=== PATIENT | male | born 1940 | race Caucasian/White ===

== ENCOUNTER 2016-11-12 15:00 | Emergency (ER) | payer OTHER ==
[~2016-11-12] VITALS: Ht 177.8 cm; Wt 106.0 kg
[~2016-11-12 15:00] MED LIST: ACT15; ASPEC81; FLX10; GLC5500; INDO-22; LISI-461 PO; VYT1010
[2016-11-12 15:10] VITALS: TEMP 36.8; Ht 177.8 cm; Wt 106.0 kg
--- NOTE | 2016-11-12 15:25 | EMERGENCY ROOM VISIT NOTE ---
History Report prepared by Hitesh: Fabian Carroll Under the Supervision of: Dr. Myles Hall M.D. First contact with patient: 15:17 Chief Complaint: LEG PAIN,LEG INJURY Stated Complaint: LEG PAIN - RIGHT History of Present Illness The patient is a 76 year old male who presents to the Emergency Room with complaints of worsening right leg pain that began a few days ago. He rates his pain a 9/10 in severity. The patient states that he has had "lumps" on his right inner thigh for many years. He states that over these couple of days, they began to hurt, and more lumps have appeared. He denies any pain in his calves or foot. He denies any numbness or weakness. He denies chest pain or shortness of breath. He has a history of diabetes. He states that his blood sugar has been giving him trouble secondary to illnesses. Source of History: patient Onset: a few days ago Position: leg (right) Symptom Intensity: 9/10 Quality: ache Timing: worsening Modifying Factors (Worsening): movement Associated Symptoms: No SOB, No chest pain, No numbness, No weakness Review of Systems See HPI for pertinent positives & negatives. A total of 10 systems reviewed and were otherwise negative. Past Medical & Surgical Medical Problems: (1) Diabetes Old medical records were reviewed. Nurse's notes were reviewed and I agree with. Family History Omitted secondary to age. Social History Smoking Status: Former Smoker Smokeless Tobacco Use: No Drug Use: none Marital Status: Housing Status: lives with significant other Occupation Status: retired Current/Historical Medications Scheduled Cyclobenzaprine Hcl (Flexeril), 10 MG PO TID Ezetimibe/Simvastatin (Vytorin 03/27), 1 TAB PO QPM Glipizide (Glucotrol), 10 MG PO BID Lisinopril (Zestril), 10 MG PO QAM Metformin Hcl (Glucophage), 1,000 MG PO BID Pioglitazone (Actos), 15 MG PO DAILY Allergies Coded Allergies: No Known Allergies (Unverified , 06/12/06) Physical Exam Vital Signs Date Time Temp Pulse Resp B/P Pulse Ox O2 Delivery O2 Flow Rate FiO2 11/12/16 15:10 36.8 92 20 151/82 95 Room Air Physical Exam General: Non ill appearing older male. Well developed well nourished in no acute distress, breathing comfortably on room air. Normal speech HEENT: Normal cephalic atraumatic. Pupils are equal round and reactive to light. Extraocular movements are intact. Oropharynx is pink with moist mucous membranes. No swelling of the mouth lips or tongue. Neck: Supple with a midline trachea. No meningeal signs or stiffness, no JVD or bruits. No Stridor. Chest: Clear to auscultation bilaterally. No wheezes or rhonchi. No increased work of breathing. Heart: regular rate and rhythm. Abdomen: Soft nontender, nondistended without rebound guarding or rigidity. Extremities: No cyanosis clubbing or edema. No calf tenderness or assymetry. Mild tenderness in the medial thigh with palpable nodules. No redness or warmth. Spine/Back. Non tender to palpation. No CVA tenderness Skin: Good turgor without rashes. Neurologic exam: Cranial nerves two through 12 are intact. Motor and sensation are intact and symmetrical throughout. Medical Decision & Procedures ER Provider Diagnostic Interpretation: Radiology results as stated below per my review and radiologist interpretation: RIGHT LOWER EXTREMITY VENOUS DOPPLER HISTORY: Leg swelling/pain Right COMPARISON STUDY: None. FINDINGS: There is normal compressibility, flow, and augmentation within the right lower extremity deep venous system. Thrombus identified within the right greater saphenous vein from the thigh through the calf. IMPRESSION: No DVT within the right lower extremity. Thrombosed right greater saphenous vein. Electronically signed by: Eric Acosta M.D. 11/12/2016 5:51 PM Dictated Date/Time: 11/12/2016 5:50 PM Laboratory Results 11/12/16 15:45 Red Blood Count 4.44, Mean Corpuscular Volume 91.0, Mean Corpuscular Hemoglobin 30.6, Mean Corpuscular Hemoglobin Concent 33.7, Mean Platelet Volume 9.6 11/12/16 15:45 Test 11/12/16 15:45 White Blood Count 7.12 K/uL (4.8-10.8) Red Blood Count 4.44 M/uL (4.7-6.1) Hemoglobin 13.6 g/dL (14.0-18.0) Hematocrit 40.4 % (42-52) Mean Corpuscular Volume 91.0 fL (80-100) Mean Corpuscular Hemoglobin 30.6 pg (25-34) Mean Corpuscular Hemoglobin Concent 33.7 g/dl (32-36) Platelet Count 183 K/uL (130-400) Mean Platelet Volume 9.6 fL (7.4-10.4) RDW Standard Deviation 44.1 fL (36.4-46.3) RDW Coefficient of Variation 13.3 % (11.5-14.5) Neutrophils % (Manual) 44.2 % Lymphocytes % (Manual) 12.4 % Variant Lymphocytes % (manual) 29.2 % Monocytes % (Manual) 8.0 % Eosinophils % (Manual) 4.4 % Basophils % (Manual) 0.9 % (0-2) Metamyelocytes % 0.9 % Neutrophils # (Manual) 3.15 K/uL (1.4-6.5) Total Absolute Neutrophils 3.15 K/uL (1.4-6.5) Lymphocytes # (Manual) 0.88 K/uL (1.2-3.4) Absolute Variant Lymphocytes 2.08 K/uL Total Absolute Lymphocytes 2.96 K/uL (1.2-3.4) Monocytes # (Manual) 0.57 K/uL (0.11-0.59) Eosinophils # (Manual) 0.31 K/uL (0-0.5) Basophils # (Manual) 0.06 K/uL (0-0.2) Metamyelocytes # 0.06 K/uL (0-0) Smudge Cells PRESENT Prothrombin Time 9.5 SECONDS (9.0-12.0) Prothromb Time International Ratio 0.9 (0.9-1.1) Activated Partial Thromboplast Time 20.7 SECONDS (21.0-31.0) Partial Thromboplastin Ratio 0.8 Anion Gap 8.0 mmol/L (3-11) Est Creatinine Clear Calc Drug Dose 71.8 ml/min Estimated GFR () 76.2 Estimated GFR (Non- 65.8 BUN/Creatinine Ratio 15.3 (10-20) Calcium Level 8.0 mg/dl (8.5-10.1) Beta-Hydroxybutyric Acid 1.03 mg/dL (0.2-2.81) Laboratory studies as stated above per my review. ED Course 1517: Past medical records reviewed. The patient was evaluated in room B2, and a complete history and physical examination were performed. 1652: The patient is resting comfortably waiting for an US. 1809: I spoke with Dr[facility], at this time. Please see the consultation note for further information. 1820: Upon reevaluation, the patient is resting. I discussed the results and treatment plan with him. He verbalized agreement of the treatment plan. The patient was discharged home. Medical Decision Differentials include DVT, varicose veins, diabetic emergency, and injection. Medication Reconciliation: I attest that I have personally reviewed the patient' s current medication list. He is currently not on any blood thinners Blood pressure Screening: Patient was found to have normal blood pressure on screening and does not require follow-up. This patient comes in as described above. He was placed in room B2. He is here for treatment and evaluation of right leg pain in his right side. He has some nodules in the right medial thigh. They're not red or warm. He is mildly tender. Distally, the leg is pink and well-perfused appear with normal pulses. No calf tenderness or asymmetry or anything to suggest DVT or arterial compromise. Ultrasound was ordered as well as blood work. He was reassessed frequently. He is on no blood thinners. The ultrasound shows no DVT however there is extensive saphenous vein clot. Given the large clot burn I do think he needs anticoagulation. Discussed with Dr. [facility]ly [facility] who agrees. I did start the patient on Xarelto 15 mg by mouth and a prescription 15 mg by mouth twice a day for 7 days. I discussed with the pharmacist who agrees as well. I talked to patient about this. He has no trouble ambulating the does not appear to be a fall risk. I told him of the extreme importance him following up this week for recheck he may need a full course of this for several months hit his doctor may prefer him on a different drug long-term as well and they need to decide that. Certainly this is not the and of the story and he should follow-up with his doctor and return if: increasing pain, problems with bleeding, any new problems or concerns Consults Time Called: 180 Consulting Physician: Dr. Kimberly White Returned Call: [phone] They recommended starting Xarelto. Impression Primary Impression: Superficial thrombophlebitis Additional Impression: Right leg pain Scribe Attestation The scribe's documentation has been prepared under my direction and personally reviewed by me in its entirety. I confirm that the note above accurately reflects all work, treatment, procedures, and medical decision making performed by me. Departure Information Dispostion Home / Self-Care Referrals Alena Hernandez (PCP) Forms HOME CARE DOCUMENTATION FORM, IMPORTANT VISIT INFORMATION Patient Instructions My [facility] Additional Instructions Rest. Drink plenty of fluids. Use a warm compress May use an anti-inflammatory such as ibuprofen 400 mg every 6 hours Return if: Increasing pain or swelling, redness or warmth, fever or chills, chest pain, shortness breath, any new problems or concerns. Your blood pressure is mildly elevated. Make sure you follow-up with your doctor for recheck of this as well and possible further treatment Follow-up with your doctor this week for recheck of your leg as well. Problem Qualifiers
[2016-11-12] MEDS ORDERED: VYT/1010 PO (15:41)
[2016-11-12] MEDS ORDERED: ACT15 PO (15:41)
[2016-11-12] MEDS ORDERED: METF-384 PO (15:41)
[2016-11-12] MEDS ORDERED: CYCL10TA6 PO (15:41)
[2016-11-12] MEDS ORDERED: GLIP10TA9 PO (15:41)
[2016-11-12 15:57] LABS: HEMATOCRIT 40.4 % (42-52); MEAN CORPUSCULAR HEMOGLOBIN 30.6 pg (25-34); MEAN CORPUSCULAR HGB CONC 33.7 g/dl (32-36); MEAN PLATELET VOLUME 9.6 fL (7.4-10.4); PLATELET COUNT 183 K/uL (130-400); RED BLOOD COUNT 4.44 M/uL (4.7-6.1); WHITE BLOOD COUNT 7.12 K/uL (4.8-10.8)
[2016-11-12 16:05] LABS: INR 0.9 (0.9-1.1); PARTIAL THROMBOPLASTIN RATIO 0.8; PROTHROMBIN TIME (PATIENT) 9.5 SECONDS (9.0-12.0)
[2016-11-12 16:13] LABS: BUN/CREATININE RATIO 15.3 (10-20); CREATININE 1.1 mg/dl (0.60-1.40); POTASSIUM 4.5 mmol/L (3.5-5.1)
[2016-11-12 16:23] LABS: BETA-HYDROXYBUTYRATE 1.03 mg/dL (0.2-2.81)
[2016-11-12 16:51] LABS: BASO ABS # 0.06 K/uL (0-0.2); BASOPHIL % 0.9 % (0-2); COMPLETE YES; EOSINOPHIL % 4.4 %; LYMPH ABS # 0.88 K/uL (1.2-3.4); LYMPHOCYTE % 12.4 %; META ABS # 0.06 K/uL (0-0); METAMYELOCYTE % 0.9 %; NEUTROPHILS % 44.2 %; SMUDGE CELLS PRESENT; VARIANT LYM ABS # 2.08 K/uL; VARIANT LYMPHOCYTE % 29.2 %
--- NOTE | 2016-11-12 17:52 | DIAGNOSTIC IMAGING REPORT ---
RIGHT LOWER EXTREMITY VENOUS DOPPLER HISTORY: Leg swelling/pain Right COMPARISON STUDY: None. FINDINGS: There is normal compressibility, flow, and augmentation within the right lower extremity deep venous system. Thrombus identified within the right greater saphenous vein from the thigh through the calf. IMPRESSION: No DVT within the right lower extremity. Thrombosed right greater saphenous vein. Electronically signed by: Eric Acosta M.D. 11/12/2016 5:51 PM Dictated Date/Time: 11/12/2016 5:50 PM
[2016-11-12] MEDS ORDERED: RIVAROXABAN TAB 15 MG TAB PO STA (18:22)
[2016-11-12 18:46] VITALS: BP 145/78; PULSE 75; O2SAT 94
== END 2016-11-12 18:49 | disposition home or self-care (01) ==
LOC: C.EDB 15:01
DX: I80.01 Phlebitis and thrombophlebitis of superficial vessels of right lower extremity (principal); E11.9 Type 2 diabetes mellitus without complications; Z79.84 Long term (current) use of oral hypoglycemic drugs

== ENCOUNTER 2018-01-25 08:10 | Emergency (ER) | payer OTHER ==
[~2018-01-25] VITALS: Ht 177.8 cm; Wt 101.0 kg
[~2018-01-25 08:10] MED LIST changes: -ACT15; +ACT15 PO; -ASPEC81; +CYCL10TA6 PO; -FLX10; -GLC5500; +GLIP10TA9 PO; -INDO-22; +METF-384 PO; +VYT/1010 PO; -VYT1010
[2018-01-25 08:17] VITALS: TEMP 36.7; Ht 177.8 cm; Wt 101.0 kg
[2018-01-25 09:18] LABS: BASO % 0.3 %; BASO ABS # 0.03 K/uL (0-0.2); EOS % 1.4 %; EOS ABS # 0.12 K/uL (0-0.5); HEMATOCRIT 46.4 % (42-52); HEMOGLOBIN 15.8 g/dL (14.0-18.0); IG# 0.03 K/uL (0.00-0.02); LYMPH % 30.2 %; LYMPH ABS # 2.62 K/uL (1.2-3.4); MEAN CELL VOLUME 91.7 fL (80-100); MEAN CORPUSCULAR HEMOGLOBIN 31.2 pg (25-34); MEAN CORPUSCULAR HGB CONC 34.1 g/dl (32-36); MEAN PLATELET VOLUME 10.3 fL (7.4-10.4); MONO % 6.9 %; NEUT % 60.9 %; NEUT ABS # 5.27 K/uL (1.4-6.5); PLATELET COUNT 190 K/uL (130-400); RED CELL DISTRIBUTION WIDTH CV 13.4 % (11.5-14.5); RED CELL DISTRIBUTION WIDTH SD 44.7 fL (36.4-46.3); WHITE BLOOD COUNT 8.67 K/uL (4.8-10.8)
--- NOTE | 2018-01-25 09:21 | DIAGNOSTIC IMAGING REPORT ---
RIGHT THUMB 3 VIEWS HISTORY: R thumb pain and swelling; hx infection COMPARISON: None. FINDINGS: There is no fracture or dislocation. Soft tissue swelling within the right thumb. Mild osteoarthritis. Chondrocalcinosis within the wrist. No erosive changes within the thumb. No radiopaque foreign bodies. IMPRESSION: 1. Soft tissue swelling within the right thumb. 2. Mild osteoarthritis. 3. Chondrocalcinosis within the wrist. Electronically signed by: Eric Acosta M.D. 01/25/2018 9:19 AM Dictated Date/Time: 01/25/2018 9:18 AM
[2018-01-25 09:31] LABS: CREATININE 1.24 mg/dl (0.60-1.40); POTASSIUM 4.8 mmol/L (3.5-5.1)
--- NOTE | 2018-01-25 10:49 | EMERGENCY ROOM VISIT NOTE ---
ED Visit Note First contact with patient: 08:20 The patient was seen and examined with Frank Delaney PA-C. I agree with the history, physical and findings. Please see the note for disposition and details.
[2018-01-25 10:57] VITALS: BP 123/77; PULSE 76; O2SAT 96
--- NOTE | 2018-01-25 19:00 | EMERGENCY ROOM VISIT NOTE ---
ED Visit Note First contact with patient: 08:20 Chief Complaint: Right thumb pain. History of Present Illness: Mr. Bledsoe is a 77-year-old white male who the complaining of right thumb pain. Patient reports approximately a year ago he had a skin lesion in the left preauricular area and it was diagnosed as a MRSA infection. Patient reports approximately 1 month ago he was seen at the [facility] ED for right thumb pain and swelling. He reports he was diagnosed with a paronychia and an I&D was performed. He was discharged to home on Bactrim and had almost near resolution of his pain and swelling. Then 2 weeks ago he noted increasing redness and swelling. Once again he was seen at the [facility] ED and was once again placed on Bactrim. Once again he reported mild resolution of some of his symptoms but then over the last 2 days he has noted increasing redness and swelling in the thumb as well as pain. Currently he complains of a severe throbbing pain over the superior aspect of the thumb pad. He rates his discomfort 9/10. His pain worsens with palpation. He has not identified any alleviating factors related to the pain. He reports palpation increases his discomfort. He has not identified any alleviating factors related to his pain he reports he has been using ibuprofen without relief of his discomfort. Additionally he notes he does have a dry patch of skin in the area of his pain. He does report that he has been squeezing this area and sticking pins and a utility knife in this area. He reports this causes a severe amount of pain but he does not have any drainage from the wound but blood. He denies fevers, chills, sweats, other skin eruptions, other skin color changes , recent trauma to the thumb, thumb weakness/numbness/tingling, wrist pain, other hand/finger pain, decreased appetite, nausea/vomiting, chest pain, shortness of breath. Review of Systems: As noted above in history of present illness. 8 body systems were reviewed and found to be negative as noted above. Past Medical History: Diabetes, fibromyalgia, dyslipidemia, hypertension, peripheral vascular disease status post lumbar hemilaminectomy. Current Medications: Zestril, Flexeril, Actos, Glucotrol, Glucophage and Vytorin. Allergies to Medications: Sitagliptin. Social History: Patient is not employed; he feels safe in his home environment; he denies tobacco and alcohol use. Physical Examination: Vital Signs: Date Time Temp Pulse Resp B/P (MAP) Pulse Ox O2 Delivery O2 Flow Rate FiO2 01/25/18 10:57 76 18 123/77 96 Room Air 01/25/18 08:17 36.7 76 18 124/76 97 Room Air GENERAL: 77-year-old male in mild distress due to pain, nontoxic-appearing, afebrile and hemodynamically stable. NEUROLOGICAL: Awake, alert and oriented to person, place and time. Answering questions appropriately and following commands. Normal gait. Good hand eye coordination. No focal motor or sensory deficits. SKIN: Warm, dry and pink. Right Thumb: No fresh soft tissue trauma was noted over the border of the thumb pad and nail patient has an area of dry skin with surrounding erythema around the nail. The skin does not appear cellulitic. There are no palpable lesions or abscesses. There is no lymphangitis. HEENT: Atraumatic and normocephalic. THORAX: Lungs sounds are clear to auscultation and equal bilaterally with symmetrical chest wall. No crepitus, tenderness, subcutaneous air or deformities noted. HEART: Regular rate and rhythm. No gallops, rubs or murmurs are appreciated. ABDOMEN: Soft and nontender. Positive bowel sounds in all quadrants. No guarding, rigidity or organomegaly. RIGHT UPPER EXTREMITY: No gross bony deformity. No tenderness in the shoulder, upper arm, forearm, elbow or wrist. Mild tenderness over the soft tissue injury described of the thumb. There is no local open soft tissue trauma. The skin did not appear cellulitic as previously noted. There is no blood or fluid under the nail bed. Patient has full range of motion of the MCP, PIP and the interphalangeal joint against resistance. The thumb was warm and pink and capillary refill is brisk. He was able to distinguish light sensations to all dermatomes of the thumb. ED Course: Patient is assessed as noted above. Patient's medication list was reviewed. Laboratory Testing: Test 01/25/18 08:52 Range/Units White Blood Count 8.67 4.8-10.8 K/uL Red Blood Count 5.06 4.7-6.1 M/uL Hemoglobin 15.8 14.0-18.0 g/dL Hematocrit 46.4 42-52 % Mean Corpuscular Volume 91.7 80-100 fL Mean Corpuscular Hemoglobin 31.2 25-34 pg Mean Corpuscular Hemoglobin Concent 34.1 32-36 g/dl Platelet Count 190 130-400 K/uL Mean Platelet Volume 10.3 7.4-10.4 fL Neutrophils (%) (Auto) 60.9 % Lymphocytes (%) (Auto) 30.2 % Monocytes (%) (Auto) 6.9 % Eosinophils (%) (Auto) 1.4 % Basophils (%) (Auto) 0.3 % Neutrophils # (Auto) 5.27 1.4-6.5 K/uL Lymphocytes # (Auto) 2.62 1.2-3.4 K/uL Monocytes # (Auto) 0.60 0.11-0.59 K/uL Eosinophils # (Auto) 0.12 0-0.5 K/uL Basophils # (Auto) 0.03 0-0.2 K/uL RDW Standard Deviation 44.7 36.4-46.3 fL RDW Coefficient of Variation 13.4 11.5-14.5 % Immature Granulocyte % (Auto) 0.3 % Immature Granulocyte # (Auto) 0.03 0.00-0.02 K/uL Sodium Level 134 136-145 mmol/L Potassium Level 4.8 3.5-5.1 mmol/L Chloride Level 104 98-107 mmol/L Carbon Dioxide Level 21 21-32 mmol/L Anion Gap 10.0 3-11 mmol/L Blood Urea Nitrogen 29 7-18 mg/dl Creatinine 1.24 0.60-1.40 mg/dl Est Creatinine Clear Calc Drug Dose 61.3 ml/min Estimated GFR () 65.5 Estimated GFR (Non- 56.5 BUN/Creatinine Ratio 23.7 10-20 Random Glucose 335 70-99 mg/dl Calcium Level 9.0 8.5-10.1 mg/dl Beta-Hydroxybutyric Acid 0.2-2.81 mg/dL Blood Cultures: Pending. Right Thumb X-Rays: Were read by myself and the radiologist and shows no acute fractures or dislocations. Soft tissue swelling. Mild osteoarthritis no radiopaque foreign bodies or erosive changes. Patient was offered pain medication and refused. Patient's case was reviewed with Dr. Pepper; he independently assessed the patient we agreed on diagnostic approach, treatment, disposition and plan. Patient was educated about today's findings and instructed on his treatment plan ; he verbalized understanding and agreement with this plan. Patient was educated about today's findings and instructed on his treatment plan ; he verbalized understanding and agreement with this plan. Clinical Impression: Right thumb pain and erythema. Hyperglycemia. Decision-Making: Initially my differential diagnosis I considered abscess, cellulitis, foreign body, fracture, dislocation and other causes. Disposition: Patient discharged home in stable condition accompanied by his ; prior to departure he was reassessed and subjectively reported he was pain- free. Plan: Patient was encouraged alternate ibuprofen and acetaminophen every 3 hours as needed for pain. Patient was encouraged to monitor his blood sugars and try to stabilize his elevated patient was encouraged to follow-up with his PCP for recheck patient was encouraged to contact his PCP and request follow-up care and treatment to stabilize his hyperglycemia as well as referral to wound management clinic for definitive care and treatment. Patient was encouraged return the ED for worsening/uncontrolled pain, worsening redness/swelling, red streaking, puslike drainage, fevers or any new/concerning symptoms.
== END 2018-01-25 10:58 | disposition home or self-care (01) ==
LOC: C.EDB 08:11
DX: M79.644 Pain in right finger(s) (principal); L53.9 Erythematous condition, unspecified; E11.65 Type 2 diabetes mellitus with hyperglycemia; Z86.14 Personal history of Methicillin resistant Staphylococcus aureus infection; E11.51 Type 2 diabetes mellitus with diabetic peripheral angiopathy without gangrene; M79.7 Fibromyalgia; E78.5 Hyperlipidemia, unspecified; I10 Essential (primary) hypertension; Z98.890 Other specified postprocedural states; Z88.8 Allergy status to other drugs, medicaments and biological substances